=== PATIENT | male | born 1985 | race Two or more races ===

== ENCOUNTER 2023-10-21 22:21 | Emergency (ER) | payer MEDICAID ==
[~2023-10-21] VITALS: Ht 162.6 cm; Wt 88.0 kg
[2023-10-21 22:23] VITALS: TEMP 98.4
[2023-10-22] MEDS ORDERED: PERTUSS(ACELL),DIPH,TET/PF 0.5 ML SYRINGE [ADULT] IM. ONE (00:15)
[2023-10-22 01:00] VITALS: BP 133/84; PULSE 85; RESP 16
== END 2023-10-22 01:09 | disposition home or self-care (01) ==
LOC: EMS 22:23
DX: S01.81XA Laceration without foreign body of other part of head, initial encounter (principal); W01.0XXA Fall on same level from slipping, tripping and stumbling without subsequent striking against object, initial encounter; Y93.89 Activity, other specified; Y92.89 Other specified places as the place of occurrence of the external cause; Y99.8 Other external cause status
CPT/HCPCS: 12013; 99282; Z7502

== ENCOUNTER 2023-11-01 11:14 | Emergency (ER) | payer MEDICAID ==
[~2023-11-01] VITALS: Ht 165.1 cm; Wt 93.0 kg
[2023-11-01 11:27] VITALS: BP 135/67; PULSE 80; RESP 16; TEMP 98
== END 2023-11-01 12:27 | disposition left against medical advice (07) ==
LOC: EMS 11:14
DX: Z53.21 Procedure and treatment not carried out due to patient leaving prior to being seen by health care provider (principal)
CPT/HCPCS: 99281; Z7502